=== PATIENT | female | born 1960 | race American Indian/Alaskan Native ===

== ENCOUNTER 2017-10-04 11:41 | Emergency (ER) | payer OTHER ==
--- NOTE | 2017-10-04 14:59 | Emergency Department Report ---
ED Lower Extremity HPI - General Chief Complaint: Extremity Injury, Lower Stated Complaint: RIGHT LEG PAIN Time Seen by Provider: 10/04/17 13:53 Source: patient Mode of arrival: Ambulatory Limitations: No Limitations - History of Present Illness Initial Comments: This is a 57 y.o. female that presents with low back pain radiating down to right hip and above right knee. Patient report symptoms started last night when she got into bed. She have chronic back pain but it never radiates down legs. She is currently managed for chronic pain by PCP at [facility] and she normal go to [place] for acute pain. She is scheduled for a MRI of back on 10/24 at [facility]. She denies pulling or lifting something wrong yesterday to cause this pain. Patient reports pain feel like a torch is going down leg from right hip to above right knee and stops then go in the opposite direction. The pain is worse with movement or ambulating. It is 10/10 on pain scale with movement. Denies swelling, deformity, redness, acute fall/injury. MD Complaint: hip injury (low back pain radiating down righ hip to above knee) -: Last night Injury: Hip: Right, Knee: Right Type of Injury: unknown Place: home Severity: severe Severity scale (0 -10): 10 Improves With: nothing Worsens With: weight bearing, movement Associated Symptoms: numbness (2nd and 3rd right toes), tingling (2nd and 3rd right toes), able to partially bear weight - Related Data Allergies Allergy/AdvReac Type Severity Reaction Status Date / Time Fish Containing Products Allergy Hives Verified 10/04/17 11:42 ED Review of Systems ROS: Stated complaint: RIGHT LEG PAIN Other details as noted in HPI Constitutional: denies: chills, fever Respiratory: denies: cough, shortness of breath, wheezing Cardiovascular: denies: chest pain, palpitations Gastrointestinal: denies: abdominal pain, nausea, diarrhea Musculoskeletal: back pain (low back pain radiating down RLE from hip to abover knee), arthralgia. denies: joint swelling Skin: denies: rash, lesions, change in color, change in hair/nails, pruritus Neurological: denies: headache, weakness, paresthesias ED Past Medical Hx - Past Medical History Hx Hypertension: Yes Hx Arthritis: Yes Additional medical history: osteoarthritis, - Surgical History Additional Surgical History: tubal ligation, hysterectomy - Social History Smoking Status: Never Smoker Substance Use Type: None ED Physical Exam - General Limitations: No Limitations General appearance: alert, in no apparent distress - Respiratory Respiratory exam: Present: normal lung sounds bilaterally. Absent: respiratory distress, wheezes, rales, rhonchi, stridor, accessory muscle use, decreased breath sounds - Cardiovascular Cardiovascular Exam: Present: regular rate, normal rhythm, normal heart sounds. Absent: systolic murmur, diastolic murmur, rubs, gallop - GI/Abdominal GI/Abdominal exam: Present: soft, normal bowel sounds. Absent: distended, tenderness, guarding, rebound, rigid, organomegaly, mass - Extremities Exam Extremities exam: Present: normal inspection, full ROM, normal capillary refill. Absent: pedal edema, joint swelling, calf tenderness - Expanded Lower Extremity Exam Right Hip exam: Present: normal inspection, full ROM, pelvic stability. Absent: tenderness, swelling, laceration, ecchymosis, deformity, crepidus, dislocation Upper Leg exam: Present: normal inspection, full ROM Knee exam: Present: normal inspection, full ROM Lower Leg exam: Present: normal inspection, full ROM Ankle exam: Present: normal inspection, full ROM Foot/Toe exam: Present: normal inspection, full ROM Neuro vascular tendon exam: Present: no vascular compromise Gait: Positive: observed and limited by pain. Negative: unable to bear weight ( partial weight bearing) ED Course Vital Signs 10/04/17 10/04/17 10/04/17 11:43 16:25 16:30 Temperature 98.2 F Pulse Rate 85 56 L Respiratory 20 18 Rate Blood Pressure 144/83 121/60 O2 Sat by Pulse 98 100 Oximetry 10/04/17 17:30 Temperature Pulse Rate Respiratory 18 Rate Blood Pressure O2 Sat by Pulse Oximetry ED Lower Extremity MDM - Radiology Data Radiology results: report reviewed XR L-spine: Dextroscoliosis. Degenerative discs. - Medical Decision Making This is a 57 y.o. female that presents with low back pain radiating to RLE. Patient is stable and examined by me. Xray of L-Spine obtained and Dextroscoliosis. Degenerative discs. Vitals stable. No acute signs of distress noted. Give tramadol 50 mg po once and dexamethasone 8 mg IM once in ER. She is currently taking flexeril, gabapentin, meloxicam, and tylenol 3 for pain management of chronic back pain. She didn't take anything for pain. Advised to start back taking current prescriptions and f/u with PCP. No new prescriptions written. Patient agrees to ED plan of care. Discharged home stable. Follow up with PCP in 3 days. Critical care attestation.: If time is entered above; I have spent that time in minutes in the direct care of this critically ill patient, excluding procedure time. ED Disposition Clinical Impression: Low back pain with sciatica Qualifiers: Chronicity: acute Back pain laterality: bilateral Sciatica laterality: sciatica of right side Qualified Code(s): M54.41 - Lumbago with sciatica, right side Degenerative disc disease Qualifiers: Spinal region: lumbar Qualified Code(s): M51.36 - Other intervertebral disc degeneration, lumbar region Disposition: TO HOME OR SELFCARE Is pt being admited?: No Does the pt Need Aspirin: No Condition: Stable Instructions: Lumbar Radiculopathy (ED), Arthralgia (ED) Additional Instructions: Rest Use ice or heat on affected area for 20 minutes and off for 2 hours. Take pain medication as needed for pain. Don't drive or operate heavy machinery while taking muscle relaxers because they may cause drowsiness. Follow up with Primary Care Provider in 2-3 days. Referrals: [facility] [Outside] - 3-5 Days [facility] [Outside] - 3-5 Days [facility] [Outside] - 3-5 Days Time of Disposition: 17:18 Print Language: IRISH
[2017-10-04] MEDS ORDERED: ULTRAM ONE (16:34)
[2017-10-04] MEDS ORDERED: ULTRAM PO ONE (16:34)
[2017-10-04 16:47] VITALS: BP 121/60
--- NOTE | 2017-10-04 16:51 | XRay Report ---
FINAL REPORT EXAM: XR SPINE LUMBOSACRAL 2-3V HISTORY: low back pain radiating to RLE TECHNIQUE: Three views lumbar spine. PRIORS: None currently available. FINDINGS: Grade 1/2 anterior subluxation at L4-L5. Moderate degenerative discs at L3-L5. Moderate to severe degenerative disc at L5-S1. Remaining disc levels are uniform. Vertebral body heights are intact. No fracture. Posterior facet arthropathy at L3-S1. Dextroscoliosis with rotatory component. No suspicious osseous lesions. No vertebral anomalies. SI joints are unremarkable. IMPRESSION: Dextroscoliosis. Degenerative discs.
[2017-10-04] MEDS ORDERED: DECADRON ONE (17:23)
[2017-10-04] MEDS ORDERED: DECADRON IM ONE (17:27)
== END 2017-10-04 17:35 | disposition home or self-care (01) ==
LOC: ED 11:41
DX: M54.41 Lumbago with sciatica, right side (principal); M51.36 Other intervertebral disc degeneration, lumbar region
CPT/HCPCS: 72100; 96372; 99283; J1100